=== PATIENT | male | born 1950 | race Caucasian/White ===

== ENCOUNTER 2023-02-05 11:00 | Day surgery (SDC) | payer OTHER ==
[2023-02-02 10:51] LABS: Absolute Lymphocytes (CBC) 1.1 K/uL (0.7-4.9); Lymphocytes % 14.6 % (15.3-44.8); MCV 93.6 fL (80-100); MPV 7.8 fL (7.6-11.3); Platelets 203 thou/uL (152-406); RBC Red Blood Cell Count 4.81 M/uL (4.33-5.43)
[2023-02-02 11:08] LABS: Protime INR 1.03
--- NOTE | 2023-02-02 11:12 | RAD REPORT ---
EXAM DESCRIPTION: RAD - Chest Pa And Lat (2 Views) - 02/02/2023 11:05 am CLINICAL HISTORY: pre op pending heart catheterization Chest pain. COMPARISON: No comparisons FINDINGS: The lungs are hyperexpanded but clear. The heart is normal in size. Sternotomy wires prese nt. Small hiatal hernia. IMPRESSION: No acute or concerning finding suspected. The USPSTF recommends annual screening for lung cancer with low-dose CT (LDCT) in adults aged 50 to 8 0 years who have a 20 pack-year smoking history and currently smoke or have quit within the past 15 y ears.
--- NOTE | 2023-02-02 11:17 | EKG ---
Test Date: 2023-02-02 Test Time: 10:30:42 [employer] Systems Engineer: SHYAM MEASUREMENT RESULTS: Intervals: Rate: 57 PA: 194 QRSD: 82 QT: 394 QTc: 383 [place]: P: 25 PA: 194 QRS: 52 T: 105 INTERPRETIVE STATEMENTS: Sinus bradycardia Low voltage QRS ST & T wave abnormality, consider lateral ischemia Abnormal ECG Compared to ECG 11/23/2001 21:42:00 Low QRS voltage now present ST (T wave) deviation now present Possible ischemia now present Sinus rhythm no longer present Electronically Signed On 02-02-23 11:17:04 CDT by Roly Kruse
[2023-02-05] MEDS ORDERED: NA CHLORIDE 0.9% 500 ML ONE (11:24)
[2023-02-05] MEDS ORDERED: LIDOCAINE 1% 20 ML MDV ONE (12:39)
[2023-02-05] MEDS ORDERED: HEPA 1000U/500MLS 2,000 UNIT/1,000 ML BAG IV ONE (12:39)
[2023-02-05] MEDS ORDERED: FENTANYL CITR 100 MCG/2 ML ONE (13:16)
[2023-02-05] MEDS ORDERED: VERAPAMIL HCL 10 MG/4 ML VIAL IV ONE (13:17)
[2023-02-05] MEDS ORDERED: ATROPINE SULF 1 MG/10 ML SYR IV ONE (13:17)
[2023-02-05] MEDS ORDERED: CLOPIDOGREL 75 MG TABLET ONE (13:17)
[2023-02-05] MEDS ORDERED: MIDAZOLAM HCL 2 MG/2 ML INJ ONE (13:17)
[2023-02-05] MEDS ORDERED: HEPARIN 5000 UNIT/ML 1 ML VIAL ONE (13:17)
[2023-02-05] MEDS ORDERED: HEPARIN 10,000 UNIT/10 ML VIAL IV ONE (13:17)
[2023-02-05] MEDS ORDERED: TICAGRELOR 90 MG TABLET PO ONE (13:17)
[2023-02-05] MEDS ORDERED: FAMOTIDINE 20 MG TAB ONE (13:59)
[2023-02-05] MEDS ORDERED: HEPA 1000U/500MLS 1,000 UNIT/500 ML BAG IV ONE (14:04)
[2023-02-05] MEDS ORDERED: ASPIRIN 325 MG TAB ONE (14:09)
[2023-02-05 16:14] VITALS: O2SAT 95
[2023-02-05 16:48] VITALS: BP 166/60
== END 2023-02-05 17:10 | disposition home or self-care (01) ==
LOC: CCL 11:00
PROVIDERS: ATTEND Internal Medicine
DX: I25.110 Atherosclerotic heart disease of native coronary artery with unstable angina pectoris (principal); I25.700 Atherosclerosis of coronary artery bypass graft(s), unspecified, with unstable angina pectoris; I25.5 Ischemic cardiomyopathy; I65.29 Occlusion and stenosis of unspecified carotid artery; I10 Essential (primary) hypertension; E78.5 Hyperlipidemia, unspecified; E11.9 Type 2 diabetes mellitus without complications; F17.200 Nicotine dependence, unspecified, uncomplicated; Z79.82 Long term (current) use of aspirin; Z79.899 Other long term (current) drug therapy; Z82.49 Family history of ischemic heart disease and other diseases of the circulatory system
CPT/HCPCS: 93005; 85025; 80048; 36415; 85610; 85730; 71046; 93459; 76937; C1893; Q9967; C1725; C9600; J1644; J2001; J2250; J3010; J7040; J0461